=== PATIENT | female | born 1950 | race Caucasian/White ===

== ENCOUNTER 2016-11-14 09:21 | Outpatient (CLI) | payer MEDICARE, BC ==
[2016-11-14] MEDS ORDERED: IOHEXOL-350 100 ML VIAL IV ONE ×2 (09:55)
[2016-11-14] MEDS ORDERED: IV NS 0.9% 250 ML IV ONE ×2 (09:55)
[2016-11-14] MEDS ORDERED: NITROGLYCERIN 4.9 GM SPRAY ONE (10:18)
== END 2016-11-14 23:59 | disposition home or self-care (01) ==
LOC: CT 09:21
PROVIDERS: ATTEND Internal Medicine Interventional Cardiology
DX: R91.8 Other nonspecific abnormal finding of lung field (principal); Z87.891 Personal history of nicotine dependence
CPT/HCPCS: 75574; J7050 ×2; Q9967 ×2

== ENCOUNTER 2022-03-18 08:26 | Day surgery (SDC) | payer MEDICARE, OTHER ==
[~2022-03-18] VITALS: Ht 152.4 cm; Wt 68.9 kg
[2022-03-18 09:08] LABS: CALCIUM, SERUM 8.9 mg/dL (8.5-10.1); CREATININE 0.8 mg/dL (0.6-1.3); POTASSIUM 4.4 mmol/L (3.5-5.1)
[2022-03-18] MEDS ORDERED: CT SWABBABLE VALVE TRANS SET 1 EA INFUS.SET MC ONE (10:11)
[2022-03-18] MEDS ORDERED: IOHEXOL-350 100 ML VIAL IV ONE (10:11)
[2022-03-18] MEDS ORDERED: NITROGLYCERIN 0.4 MG/TAB BOTTLE ONE (10:11)
[2022-03-18] MEDS ORDERED: IV NS 0.9% 250 ML IV ONE (10:12)
--- NOTE | 2022-03-18 10:25 | NUR ---
started ivhl LAC 18g, patent, patient tolerated the procedure.
[2022-03-18] MEDS ORDERED: NITROGLYCERIN 0.4 MG/TAB BOTTLE SL ONE (10:30)
[2022-03-18 10:35] VITALS: BP 148/70
--- NOTE | 2022-03-18 10:39 | NUR ---
DC IVHL, applied 2x2 gauze and pressure to site. No bleeding noted. Patient discharged to home in stable condition and denies any discomfort. Patient verbalized understanding of discharged instructions given by JAS Jhaveri.
== END 2022-03-18 10:48 | disposition home or self-care (01) ==
LOC: CT 08:26
PROVIDERS: ATTEND Internal Medicine Interventional Cardiology
DX: I65.23 Occlusion and stenosis of bilateral carotid arteries (principal); R07.9 Chest pain, unspecified; I25.10 Atherosclerotic heart disease of native coronary artery without angina pectoris
CPT/HCPCS: 75574; 80048; 36415; J7050; Q9967